=== PATIENT | female | born 1965 | race Caucasian/White ===

== ENCOUNTER 2016-07-26 20:40 | Emergency (ER) | payer OTHER ==
[2016-07-26 21:07] VITALS: BP 146/90; PULSE 90; TEMP 97.9; BMI 33.6
--- NOTE | 2016-07-26 21:57 | PDOC ---
History of Present Illness - General History Source: Patient Exam Limitations: No Limitations - History of Present Illness Initial Comments: 07/26/16 22:11 The patient is a 51 year old female with significant past medical history of breast CA s/p surgery (6 years ago) and multiple abdominal surgeries who presents to the ED with diffuse lower abdominal pain that began around 8am today. Patient describes her pain as sharp, stabbing sensation, intermittent lasting few minutes, and 10/10, in severity. She also has complaints of nausea, but no vomiting, diarrhea, and blood in stool. Her last normal bowel movement was earlier today. She states having a bowl of cereal and half of a banana for breakfast and subsequently, she developed abdominal pain. She took pepto bismol around 3pm with no improvement. Patient denies any sick contacts and recent travels. The patient denies fever, chills, diaphoresis, cough, SOB, chest pain, and palpitations. The patient denies dysuria, hematuria, urgency, and frequency. Allergies: NKDA Social History: No alcohol, tobacco, or drug use reported. Past Surgical History: appendectomy, cholecystectomy, s/p hernia repair x2, left oophorectomy (25 years ago), right ovarian cyst removal (approximately 10 years ago), 2 SBO s/p bowel surgery (approximately 20 years ago and 3 years ago) , breast CA s/p surgery (6 years ago) <Roxana Pacheco - Last Filed: 07/27/16 01:36> <Twan Young - Last Filed: 07/27/16 01:56> - General Chief Complaint: Pain Stated Complaint: ABD PAIN/NAUSEA Time Seen by Provider: 07/26/16 21:35 Past History <Roxana Pacheco - Last Filed: 07/27/16 01:36> - Past Medical History Cancer: Yes (BREAST) Thyroid Disease: Yes Other medical history: OBSTRUCTION, HERNIA - Surgical History Cholecystectomy: Yes GI Surgery: Yes (2 HERNIA) - Psycho/Social/Smoking Cessation Hx Suicidal Ideation: No Smoking History: Former smoker Have you smoked in the past 12 months: No Information on smoking cessation initiated: No Hx Alcohol Use: No Drug/Substance Use Hx: No <Twan Young - Last Filed: 07/27/16 01:56> - Past Medical History Allergies/Adverse Reactions: Allergies Allergy/AdvReac Type Severity Reaction Status Date / Time No Known Allergies Allergy Verified 07/26/16 20:55 Home Medications: Ambulatory Orders Levothyroxine Sodium [Synthroid] 88 mcg PO DAILY 07/26/16 Tamoxifen Citrate 25 mg PO DAILY 07/26/16 Venlafaxine HCl [Effexor -] 50 mg PO DAILY 07/26/16 Review of Systems - Review of Systems Able to Perform ROS?: Yes Comments:: 07/26/16 22:11 +lower abdominal pain, nausea Absent: fever, chills, diaphoresis, cough, SOB, chest pain, vomiting, diarrhea, blood in stool, dysuria, hematuria, urgency, and frequency <Roxana Pacheco - Last Filed: 07/27/16 01:36> *Physical Exam - Vital Signs Last Vital Signs Temp Pulse Resp BP Pulse Ox 97.9 F 90 14 146/90 96 07/26/16 20:56 07/26/16 20:56 07/26/16 20:56 07/26/16 20:56 07/26/16 20:56 - Physical Exam Comments: 07/26/16 22:11 GENERAL: Well developed, well nourished. Awake and alert. No acute distress. HEENT: Normocephalic, atraumatic. PERRLA, EOMI. No conjunctival pallor. Sclera are non- icteric. Moist mucous membranes. Oropharynx is clear. NECK: Supple. Full ROM. No JVD. Carotid pulses 2+ and symmetric, without bruits. No thyromegaly. No lymphadenopathy. CARDIOVASCULAR: Regular rate and rhythm. No murmurs, rubs, or gallops. Distal pulses are 2+ and symmetric. PULMONARY: No evidence of respiratory distress. Lungs clear to auscultation bilaterally. No wheezing, rales or rhonchi. ABDOMINAL: Soft. Pain with deep palpation in lower quadrants bilaterally. Non-distended. No rebound or guarding. No organomegaly. Hypoactive bowel sounds. MUSCULOSKELETAL Normal range of motion at all joints. No bony deformities or tenderness. No CVA tenderness. EXTREMITIES: No cyanosis. No clubbing. No edema. No calf tenderness. SKIN: Warm and dry. Normal capillary refill. No rashes. No jaundice. NEUROLOGICAL: Alert, awake, appropriate. Cranial nerves 2-12 intact. Moving all extremities. No focal neurological deficits. PSYCHIATRIC: Cooperative. Good eye contact. Appropriate mood and affect. <Roxana Pacheco - Last Filed: 07/27/16 01:36> - Vital Signs Last Vital Signs Temp Pulse Resp BP Pulse Ox 97.9 F 90 14 146/90 96 07/26/16 20:56 07/26/16 20:56 07/26/16 20:56 07/26/16 20:56 07/26/16 20:56 <Twan Young - Last Filed: 07/27/16 01:56> ED Treatment Course - RADIOLOGY Radiograph Interpretation: 07/27/16 01:36 EXAM: CT abdomen and pelvis without contrast Reviewed by Imaging software controls engineer: IMPRESSION: Nonspecific air-fluid level seen within the small bowel and colon. Underdistention versus wall thickening of the colon. Nonspecific haziness of the mesenteric fat. Findings are nonspecific but can be seen in the setting of enterocolitis. Sequela of postsurgical changes in the ventral abdominal wall with apparent adherence of multiple loops of small bowel along the infraumbilical anterior abdominal wall. There is no pneumatosis intestinalis or increased dilatation of the small bowel. There is no portal venous gas. No pneumoperitoneum. Diverticulosis without evidence of diverticulitis. Hepatomegaly with hepatic steatosis. Sequela of cholecystectomy. No free fluid. No intra-or extrahepatic ductal dilatation. Absence of contrast limits assessment of pancreatitis and pyelonephritis. No peripancreatic, intrapancreatic, intrarenal or perinephric fluid collection. No hydronephrosis. No nephrolithiasis. Sequela of appendectomy. Prominence of the endometrium. Correlate with menstrual cycle. Partially calcified uterine fibroid. Bilateral adnexal cysts seen. <Roxana Pacheco - Last Filed: 07/27/16 01:36> Progress Note - Progress Note Progress Note: CT ABOVE HEMODYNAMICALLY STABLE. DIARRHEA (NON BLOODY) X2 IN ED WILL FOLLOW UP W/ PMD <Twan Young - Last Filed: 07/27/16 01:56> *DC/Admit/Observation/Transfer - Attestations Scribe Attestion: 07/26/16 22:11 Documentation prepared by Roxana Pacheco, acting as medical laboratory technical officer for Twan Young MD <Roxana Pacheco - Last Filed: 07/27/16 01:36> <Twan Young - Last Filed: 07/27/16 01:56> Diagnosis at time of Disposition: Enterocolitis - Discharge Dispostion Disposition: HOME Condition at time of disposition: Stable - Patient Instructions Additional Instructions: TAKE ALL YOUR MEDICATIONS PRESCRIBED PLENTY OF FLUIDS (WATER/GATORADE) BLAND DIET, ADVANCE TOLERATED EAT FREQUENT, SMALL MEALS THROUGHOUT THE DAY CALL YOUR DOCTOR IN AM FOR FOLLOW UP RETURN IF FEVER, VOMITING, SEVERE PAIN
== END 2016-07-27 02:06 | disposition home or self-care (01) ==
LOC: JER 20:40
DX: K52.9 Noninfective gastroenteritis and colitis, unspecified (principal); Z85.3 Personal history of malignant neoplasm of breast
CPT/HCPCS: 74000-TC; 74176-TC; 99282-25

== ENCOUNTER 2017-03-08 13:15 | Emergency (ER) | payer OTHER ==
[2017-03-08 13:20] VITALS: PULSE 94; TEMP 98; BMI 33.3
--- NOTE | 2017-03-08 17:41 | PDOC ---
History of Present Illness - General Chief Complaint: Blood Pressure Problem Stated Complaint: HIGH BP/headache Time Seen by Provider: 03/08/17 17:41 History Source: Patient Exam Limitations: No Limitations - History of Present Illness Initial Comments: 03/08/17 18:11 Pt. is a 51 y/o female PMH hypothyroid, HTN, who presents to the ED c/o headache and high blood pressure for one day. Pt. states that her headache began approximately 2 weeks ago after she bumped her head on a bed frame in [place]. Since then, her pain has been intermittent. This morning when she woke up, she states the pain was the worst its been since the headache started. She vomited this morning due to the headache. She measured her pressure at home and it was 168/98. She also endorses neck and arm pain. Denies fevers, chills, chest pain, shortness of breath, edema, diarrhea, leg pain, numbness, and weakness NIH Stroke Scale - Last Known Well Date/Time & Onset Date Last Known Well: 03/23/16 Time Last Known Well: 15:00 - Initial Evaluation Level of consciousness: Alert Ask patient the month and their age: Answers both correctly Ask patient to open & close eyes; make fist and let go: Obeys both correctly Best gaze (horizontal eye movement): Normal Visual field testing: No visual field loss Facial paresis (Show teeth/raise eyebrows/close eyes tight): Normal symmetrical movement Motor Function: Left Arm: Normal Motor Function: Right Arm: Normal (extends arm 90 (or 45) degrees for 10 seconds without drift Motor Function: Left Leg: Normal (extends leg 30 degrees for 5 seconds without drift) Motor Function: Right Leg: Normal (extends leg 30 degrees for 5 seconds without drift) Limb Ataxia: No ataxia Sensory(Use pinprick test arms,legs,trunk,face/side to side): Normal Best language (Describe picture, name items, read sentences): No Aphasia Dysarthria (read several words): Normal articulation Extinction and Inattention: No abnormality - Total Score NIH Stroke Scale Score: 0 Past History - Travel Traveled outside of the country in the last 30 days: Yes If so, where?: [place] Close contact w/someone who was outside of country & ill: No - Past Medical History Allergies/Adverse Reactions: Allergies Allergy/AdvReac Type Severity Reaction Status Date / Time No Known Allergies Allergy Verified 03/08/17 13:20 Home Medications: Ambulatory Orders Levothyroxine Sodium [Synthroid] 88 mcg PO DAILY 07/26/16 Tamoxifen Citrate 25 mg PO DAILY 07/26/16 Venlafaxine HCl [Effexor -] 50 mg PO DAILY 07/26/16 Ondansetron HCl [Zofran] 4 mg PO TID PRN #21 tablet 03/08/17 Cancer: Yes (BREAST) Thyroid Disease: Yes - Surgical History Cholecystectomy: Yes GI Surgery: Yes (2 HERNIA) - Psycho/Social/Smoking Cessation Hx Suicidal Ideation: No Smoking History: Former smoker Have you smoked in the past 12 months: No If you are a former smoker, when did you quit?: 2010 Information on smoking cessation initiated: No Hx Alcohol Use: No Drug/Substance Use Hx: No Substance Use Type: None Review of Systems - Review of Systems Able to Perform ROS?: Yes Is the patient limited Belgian proficient: No Constitutional: No: Chills, Fever, Malaise, Weakness HEENTM: No: Blurred Vision, Recent change in vision, Nose Pain, Nose Congestion Respiratory: No: Cough, Shortness of Breath, Wheezing Cardiac (ROS): No: Chest Pain, Lightheadedness, Palpitations, Syncope, Chest Tightness ABD/GI: Yes: Nausea, Vomiting. No: Diarrhea Musculoskeletal: Yes: Neck Pain Neurological: Yes: Headache. No: Numbness, Paresthesia, Weakness, Unsteady Gait , Dizziness All Other Systems: Reviewed and Negative *Physical Exam - Vital Signs Last Vital Signs Temp Pulse Resp BP Pulse Ox 98 F 94 H 18 157/73 98 03/08/17 13:17 03/08/17 13:17 03/08/17 13:17 03/08/17 13:17 03/08/17 13:17 - Physical Exam General Appearance: Yes: Nourished, Appropriately Dressed. No: Apparent Distress Neck: positive: Trachea midline, Supple. negative: Tender, Rigid, Decreased range of motion ((-)kernig/brudinsky sign), Lymphadenopathy (R), Lymphadenopathy (L) Respiratory/Chest: positive: Lungs Clear, Normal Breath Sounds. negative: Chest Tender, Respiratory Distress, Accessory Muscle Use Cardiovascular: positive: Regular Rhythm, Regular Rate, S1, S2 (present). negative: JVD, Murmur Gastrointestinal/Abdominal: positive: Normal Bowel Sounds, Flat, Soft. negative : Tender, Organomegaly, Guarding, Rebound, Tenderness Extremity: positive: Normal Capillary Refill, Normal Inspection, Normal Range of Motion Integumentary: positive: Normal Color, Dry, Warm Neurologic: positive: bilingual hr generalist II-XII NML intact, Fully Oriented, Alert, Normal Mood/ Affect, Normal Response, Motor Strength 11/05 ED Treatment Course - LABORATORY CBC & Chemistry Diagram: 03/08/17 18:15 03/08/17 18:15 Medical Decision Making - Medical Decision Making 03/08/17 18:40 Pt. is a 51 y/o female with PHM of HTN, hypothyroid, breast CA in remission, who presents to the ED today with three weeks of worsening headache. Given that she had worsening pain today with nausea and vomiting and elevated pressure, concerned for potential bleed. NIH Stroke scale 0. Possible migraine. Less likely stroke. 1. Head CT 2. CBC, CMP, PT/INR, Cardiac profile UA, Urine preg 3. IV Reglan and IV Benadryl 4. Re-evaluate 03/08/17 19:00 Sign out given to AMIE Timmons. Follow CT and dispo. *DC/Admit/Observation/Transfer Diagnosis at time of Disposition: Headache Qualifiers: Headache type: unspecified Headache chronicity pattern: acute headache Intractability: not intractable Qualified Code(s): R51 - Headache - Discharge Dispostion Disposition: HOME Condition at time of disposition: Improved - Prescriptions Prescriptions: Ondansetron HCl [Zofran] 4 mg PO TID PRN #21 tablet PRN Reason: Nausea And/Or Vomiting - Referrals Referrals: Jhonatan Zhou MD [Staff Physician] - Chao Feliciano [Primary Care Provider] - - Patient Instructions Printed Discharge Instructions: DI for Headache Additional Instructions: Please take medication as prescribed as needed for nausea and/or vomiting. As discussed, please follow up with Dr. Feliciano and establish care with Dr. Zhou this week. If you experience any sudden headache, persistent vomiting, change in vision, difficulty speaking/walking/swallowing, weakness or any new or worsening symptoms, please return to the ER.
[2017-03-08] MEDS ORDERED: METOCLOPRAMIDE HCL INJECTION 10 MG/2 ML VIAL IVPB ONE (18:04)
[2017-03-08] MEDS ORDERED: METOCLOPRAMIDE HCL INJECTION 10 MG/2 ML VIAL ONE (18:07)
[2017-03-08 18:40] LABS: BASOPHIL 0.7 % (0-2.0); EOSINOPHIL 0.9 % (0-4.5); MCH 30.4 pg (25.7-33.7); MCHC 33.5 g/dl (32.0-36.0); MEAN CELL VOLUME 90.7 fl (80-96); MEAN PLT VOLUME 7.5 fl (7.5-11.1); NEUTROPHILS 68.8 % (42.8-82.8); PLATELET COUNT 233 K/MM3 (134-434); RDW 12.9 % (11.6-15.6); WHITE BLOOD COUNT 7.1 K/mm3 (4.0-10.0)
[2017-03-08 18:58] LABS: INR 1.01 (0.82-1.09); PROTHROMBIN TIME (PATIENT) 11.1 SEC (9.98-11.88)
[2017-03-08 19:10] LABS: ALBUMIN 3.8 g/dl (3.4-5.0); ANION GAP 8 (8-16); BILIRUBIN,TOTAL 0.6 mg/dL (0.2-1.0); CALCIUM 8.6 mg/dL (8.5-10.1); CO2 30 mmol/L (21-32); CREATININE 0.6 mg/dL (0.55-1.02); GLUCOSE,RANDOM 164 mg/dL (74-106); SGOT/AST 33 U/L (15-37); SGPT/ALT 60 U/L (12-78); TOT PROT 7.2 g/dl (6.4-8.2)
[2017-03-08 19:13] LABS: ALK PHOS 64 U/L (45-117)
[2017-03-08 19:20] LABS: CPK 97 IU/L (26-192); TROPONIN I < 0.02 ng/ml (0.00-0.05)
[2017-03-08 19:37] VITALS: BP 125/67
--- NOTE | 2017-03-08 19:48 | PDOC ---
*Physical Exam - Vital Signs Last Vital Signs Temp Pulse Resp BP Pulse Ox 98 F 94 H 18 125/67 98 03/08/17 13:17 03/08/17 13:17 03/08/17 13:17 03/08/17 19:36 03/08/17 13:17 - Physical Exam Comments: 03/08/17 19:48 Sign-out received from outgoing ER provider Annelise. Pt interviewed and examined. Ancillary studies reviewed. Briefly, this patient is a 51 yo female with PMH of hypothyroidism, HTN, SBO (s/ p two bowel surgies), breast ca, s/p appy, terrence, hernia repair, L oopherectomy , R ovarian cyst removal, and TBI with brain bleed who presents to the ED c/o headache and high blood pressure for one day. Currently awaiting head CT; will reevaluate. 03/08/17 21:05 CT negative for acute pathology. Repeat BP 125/67. Patient reassessed; at this time she states she is feeling much better and is comfortable going home. Patient's PCP is Dr. Feliciano, she does not have a neurologist for follow up; will provide referral. Advised patient to f/u with PCP and neuro this week and of signs and symptoms for return to ER; patient verbalized understanding and agrees to plan. ED Treatment Course - LABORATORY CBC & Chemistry Diagram: 03/08/17 18:15 03/08/17 18:15 - ADDITIONAL ORDERS Additional order review: Laboratory Results 03/08/17 03/08/17 03/08/17 19:06 18:15 18:15 INR Sodium 139 Potassium 3.7 Chloride 101 Carbon Dioxide 30 Anion Gap 8 BUN 17 Creatinine 0.6 Creat Clearance w eGFR > 60 Random Glucose 164 H Calcium 8.6 Total Bilirubin 0.6 AST 33 ALT 60 Alkaline Phosphatase 64 Creatine Kinase 97 Troponin I < 0.02 Total Protein 7.2 Albumin 3.8 Serum , Qual Negative 03/08/17 18:15 INR 1.01 Sodium Potassium Chloride Carbon Dioxide Anion Gap BUN Creatinine Creat Clearance w eGFR Random Glucose Calcium Total Bilirubin AST ALT Alkaline Phosphatase Creatine Kinase Troponin I Total Protein Albumin Serum , Qual 03/08/17 18:15 RBC 4.18 MCV 90.7 MCHC 33.5 RDW 12.9 MPV 7.5 Neutrophils % 68.8 Lymphocytes % 24.2 Monocytes % 5.4 Eosinophils % 0.9 Basophils % 0.7 - Medications Given in the ED: ED Medications Discontinued Medications Generic Name Dose Route Start Last Admin Trade Name Silvanoq PRN Reason Stop Dose Admin Diphenhydramine HCl 12.5 mg 03/08/17 18:04 03/08/17 18:29 Benadryl Injection - IVPUSH 03/08/17 18:05 12.5 mg ONCE ONE Administration Metoclopramide HCl 10 mg 03/08/17 18:04 03/08/17 18:29 Reglan Injection - IVPB 03/08/17 18:05 10 mg ONCE ONE Administration *DC/Admit/Observation/Transfer Diagnosis at time of Disposition: Headache Qualifiers: Headache type: unspecified Headache chronicity pattern: acute headache Intractability: not intractable Qualified Code(s): R51 - Headache - Discharge Dispostion Disposition: HOME Condition at time of disposition: Improved Admit: No - Prescriptions Prescriptions: Ondansetron HCl [Zofran] 4 mg PO TID PRN #21 tablet PRN Reason: Nausea And/Or Vomiting - Referrals Referrals: Chao Feliciano [Primary Care Provider] - Jhonatan Zhou MD [Staff Physician] - - Patient Instructions Printed Discharge Instructions: DI for Headache Additional Instructions: Please take medication as prescribed as needed for nausea and/or vomiting. As discussed, please follow up with Dr. Feliciano and establish care with Dr. Zhou this week. If you experience any sudden headache, persistent vomiting, change in vision, difficulty speaking/walking/swallowing, weakness or any new or worsening symptoms, please return to the ER.
[2017-03-08 21:14] LABS: URINE APPEARANCE CLEAR; URINE BILIRUBIN NEGATIVE (NEGATIVE); URINE BLOOD NEGATIVE (NEGATIVE); URINE COLOR LTYELLOW; URINE GLUCOSE (UA) NEGATIVE (NEGATIVE); URINE KETONE NEGATIVE (NEGATIVE); URINE LEUK ESTERASE NEGATIVE (NEGATIVE); URINE NITRITE NEGATIVE (NEGATIVE); URINE PROTEIN NEGATIVE (NEGATIVE); URINE UROBILINOGEN NEGATIVE mg/dL (0.2-1.0)
== END 2017-03-08 21:34 | disposition home or self-care (01) ==
LOC: JER 13:15
PROC: 3E033GC Introduction of Other Therapeutic Substance into Peripheral Vein, Percutaneous Approach (ICD-10-PCS; principal; 2017-03-08)
DX: R51 Headache (principal)
CPT/HCPCS: 36415; 70450-TC; 80053; 81003; 84484; 84703; 85025; 85610; 99282-25

== ENCOUNTER 2019-04-05 01:29 | Emergency (ER) | payer OTHER ==
--- NOTE | 2019-04-05 01:42 | PDOC ---
Attending Attestation - Resident Resident Name: GiancarloerickdannielleBoni - ED Attending Attestation I have performed the following: I have examined & evaluated the patient, The case was reviewed & discussed with the resident, I agree w/resident's findings & plan - HPI HPI: 04/05/19 03:55 53-year-old female brought in by EMS after reported complaints of chest pain on scene. On arrival patient verbally aggressive with staff with no specific medical complaints. When asked to go to her bed to be medically examined patient became verbally aggressive attempting to attack staff, raising her hands. Patient was placed in restraints due to behavior and to assist with further evaluation. - Physicial Exam PE: 04/05/19 03:57 GENERAL: Awake, in no acute distress NECK: Normal ROM, LUNGS:. Normal work of breathing. NEUROLOGICAL: Alert, moving all extremities SKIN: Warm, Dry - Medical Decision Making 04/05/19 03:57 Patient reevaluated and restraints removed after continued verbal de-escalation patient continues to swear at staff and refusing medical care She is standing with steady gait, alert and oriented x4, she has been asked whether she would like her family contacted and responds with "I am not funking going anywhere ". Patient refuses to leave the room though readily refuses medical care including vital signs and EKG. She refuses to answer questions in regards to her reason for visit. At this time there is no criteria to hold patient against her well as she has been offered medical exam and has refused it multiple times. [place] [employer] contacted for assistance
--- NOTE | 2019-04-05 03:52 | PDOC ---
History of Present Illness - General Chief Complaint: Alcohol intoxication Stated Complaint: INTOX Time Seen by Provider: 04/05/19 01:41 History Source: Patient Exam Limitations: Clinical Condition, Intoxication - History of Present Illness Initial Comments: 04/05/19 03:46 53F with a PMH of hypothyroid, HTN who presents to the ER via EMS. Pt refused to provide any history as to why she presented to the ER. Past History - Past Medical History Allergies/Adverse Reactions: Allergies Allergy/AdvReac Type Severity Reaction Status Date / Time No Known Allergies Allergy Verified 03/08/17 13:20 Home Medications: Ambulatory Orders Levothyroxine Sodium [Synthroid] 88 mcg PO DAILY 07/26/16 Tamoxifen Citrate 25 mg PO DAILY 07/26/16 Venlafaxine HCl [Effexor -] 50 mg PO DAILY 07/26/16 Ondansetron HCl [Zofran] 4 mg PO TID PRN #21 tablet 03/08/17 Cancer: Yes (BREAST) Thyroid Disease: Yes - Surgical History Cholecystectomy: Yes GI Surgery: Yes (2 HERNIA) - Psycho Social/Smoking Cessation Hx Smoking History: Former smoker Have you smoked in the past 12 months: No If you are a former smoker, when did you quit?: 2010 Hx Alcohol Use: No Drug/Substance Use Hx: No Substance Use Type: None Review of Systems - Review of Systems Able to Perform ROS?: No (not answering questions) *Physical Exam - Physical Exam General Appearance: Yes: Nourished, Disheveled, Alcohol on Breath HEENT: positive: Normal Voice, Hearing Grossly Normal Neurologic: positive: Normal Response, Motor Strength 5/5 Medical Decision Making - Medical Decision Making 04/05/19 03:47 53F with a PMH of HTN and hypothyroidism who presents to the ER with alcohol on her breath. As my examination began, pt was noted to become verbally agressive and attempted to strike staff. Security was alerted and patient was placed in 4 point restraints to protect staff. No chemical restraints were used. Upon reexamination, patient was more calm with restraints removed but adamantly refused medical examination including FS, EKG, vital signs. Of note, patient is alert and oriented x 3 with alcohol on her breath. Pt refused multiple attempts at medical examination. Pt also refused to leave property. [employer] called. Discharge - Discharge Information Problems reviewed: Yes Clinical Impression/Diagnosis: Intoxication Condition: Good Disposition: HOME - Admission No - Follow up/Referral Referrals: Chao Feliciano [Primary Care Provider] - - Patient Discharge Instructions Patient Printed Discharge Instructions: DI for Alcohol Abuse - Post Discharge Activity
[2019-04-05 04:28] VITALS: BP 0/0; PULSE 0; TEMP 0; BMI 32.8
== END 2019-04-05 04:15 | disposition home or self-care (01) ==
LOC: JER 01:29
DX: F10.120 Alcohol abuse with intoxication, uncomplicated (principal); Z87.891 Personal history of nicotine dependence; E03.9 Hypothyroidism, unspecified; I10 Essential (primary) hypertension; Z85.3 Personal history of malignant neoplasm of breast
CPT/HCPCS: 99282-25